=== PATIENT | female | born 1990 | race Two or more races ===

== ENCOUNTER 2018-11-16 17:38 | Emergency (ER) | payer SELFPAY ==
[~2018-11-16] VITALS: Ht 157.5 cm; Wt 54.4 kg
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
[2018-11-16 18:00] VITALS: BP 110/74
--- NOTE | 2018-11-16 18:01 | NUR ---
ED Nurse Note: SKIN IS INTACT. CONTINENT FOR BOTH BOWEL AND BLADDER
[2018-11-16 18:06] LABS: BASOPHILS % (AUTO) 1.1 % (0.0-2.0); EOSINOPHILS % (AUTO) 0.8 % (0.0-3.0); HEMATOCRIT 35.4 % (37.0-47.0); HEMOGLOBIN 11.5 G/DL (12.0-16.0); LYMPHOCYTES % (AUTO) 40.5 % (20.0-45.0); MEAN CORPUSCULAR VOLUME 89 FL (80-99); MONOCYTES % (AUTO) 8.1 % (1.0-10.0); NEUTROPHILS % (AUTO) 49.4 % (45.0-75.0); PLATELET COUNT 316 K/UL (150-450); RED BLOOD COUNT 3.98 M/UL (4.20-5.40); RED CELL DISTRIBUTION WIDTH 12.2 % (11.6-14.8); WHITE BLOOD COUNT 9.2 K/UL (4.8-10.8)
[2018-11-16 18:19] LABS: ANION GAP 9 mmol/L (5-15); BLOOD UREA NITROGEN 11 mg/dL (7-18); CALCIUM 8.9 MG/DL (8.5-10.1); CARBON DIOXIDE 26 MMOL/L (21-32); CHLORIDE 103 MMOL/L (98-107); CREATININE 0.7 MG/DL (0.55-1.30); POTASSIUM 2.9 MMOL/L (3.5-5.1); SODIUM 138 MMOL/L (136-145)
[2018-11-16 18:31] LABS: ALANINE AMINOTRANSFERASE 51 U/L (12-78); ALBUMIN 3.5 G/DL (3.4-5.0); ALBUMIN/GLOBULIN RATIO 1.2 (1.0-2.7); ALKALINE PHOSPHATASE 68 U/L (46-116); ASPARTATE AMINO TRANSFERASE 26 U/L (15-37); BILIRUBIN,TOTAL 0.3 MG/DL (0.2-1.0)
[2018-11-16 18:39] LABS: APPEARANCE,URINE CLEAR; BILIRUBIN, URINE NEGATIVE (NEGATIVE); COLOR,URINE PALE YELLOW; GLUCOSE, URINE (UA) NEGATIVE (NEGATIVE); KETONES,URINE 1+ (NEGATIVE); LEUKOCYTE ESTERASE ,URINE NEGATIVE (NEGATIVE); NITRITE,URINE NEGATIVE (NEGATIVE); PH,URINE 5 (4.5-8.0); PROTEIN,URINE 1+ (NEGATIVE); UROBILINOGEN,URINE NORMAL MG/DL (0.0-1.0)
--- NOTE | 2018-11-16 19:13 | NUR ---
HAND-OFF: Report given to Kit Christianson RN.
[2018-11-16 21:44] VITALS: BP 123/86
[2018-11-16 23:20] VITALS: BP 106/67
--- NOTE | 2018-11-16 23:20 | NUR ---
ED Nurse Note: Pt is fully alert and oriented; fully ambulatory without difficulty. Pt discharged in stable condition, TAP card and food provided.
--- NOTE | 2018-11-17 13:26 | Cardiology Report ---
APPROVED REPORT EKG Measurement Heart [id number] Sinus tachycardia Cannot rule out Anterior infarct, age undetermined Abnormal ECG
== END 2018-11-16 23:20 | disposition home or self-care (01) ==
LOC: EDBD 17:38 → EMR 17:55
DX: R55 Syncope and collapse (principal); F12.10 Cannabis abuse, uncomplicated
CPT/HCPCS: 36415; 80053; 80307; 81003; 81025; 85025; 93005; 96361; 96374; 99284; G0480; J2405; 80329; J8499

== ENCOUNTER → 2019-08-19 | Emergency (ER) | payer OTHER, SELFPAY ==
[~2019-08-19] VITALS: Ht 160 cm; Wt 61.2 kg
[2019-08-19 21:41] VITALS: BP 136/103
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
--- NOTE | 2019-08-19 22:00 | NUR ---
ED Nurse Note: ERMD at bedside.
[2019-08-19 22:15] VITALS: BP 136/103
--- NOTE | 2019-08-19 22:15 | NUR ---
ED Nurse Note: Pt cleared by ERMD for discharge. DC instructions was given and explained to pt and verbalized understanding of teachings. All medical deviecs such as ID band removed. Pt is AAO x4, ambulatory and left with all personal belongings. Weather appropriate clothing provided. Pt accompanied by [employer] officers.
== END ==
LOC: EDUNIT# 21:34 → EDBD 21:41 → EMR 21:54
DX: T65.891A Toxic effect of other specified substances, accidental (unintentional), initial encounter (principal); L24.5 Irritant contact dermatitis due to other chemical products; S02.5XXA Fracture of tooth (traumatic), initial encounter for closed fracture; Y04.0XXA Assault by unarmed brawl or fight, initial encounter; Y93.9 Activity, unspecified; Y92.9 Unspecified place or not applicable; K08.89 Other specified disorders of teeth and supporting structures
CPT/HCPCS: 99282

== ENCOUNTER 2019-11-29 21:04 | Emergency (ER) | payer SELFPAY ==
[~2019-11-29] VITALS: Ht 162.6 cm; Wt 59.0 kg
[2019-11-29 21:15] VITALS: BP 124/81
--- NOTE | 2019-11-29 21:20 | NUR ---
ED Nurse Note: Patient walked in to ER c/o dizziness when standing as well as R sided weakness/numbness and tingling for several days, denies pain. Patioent HOLDEN x4, VSS at this time, was able to ambulate with steady gait.
--- NOTE | 2019-11-29 21:23 | Emergency Room Report ---
History of Present Illness General Chief Complaint: Dizziness Source: Patient Present Illness HPI This a 29-year-old female with no past medical history. She denies any drug use but had a history of methamphetamine here before. She presents with chief complaint of dizziness. Onset for last couple days. She said when she stands up she felt dizzy she had an episode of vomiting. Also with neck and right- sided pain. She denies any fever chills but denies any nausea vomiting. No focal deficit. Surprise better now. This occurred after smoking marijuana. Denies any other complaint. Made it better. Nothing made it worse. Pain is 7 out of 10. COVID-19 risk:Travel to affect: No Has patient experienced fuentes: No Allergies: Coded Allergies: No Known Allergies (Unverified , 11/16/18) Patient History Past Medical History: see triage record, old chart reviewed Past Surgical History: none Pertinent Family History: none Social History: Reports: drug use Last Menstrual Period: 11/14/19 Now: No Immunizations: other Reviewed Nursing Documentation: PMH: Agreed; PSxH: Agreed Nursing Documentation-PMH Past Medical History: No Stated History Review of Systems Eye: Denies: eye pain, blurred vision ENT: Denies: ear pain, nose congestion, throat swelling Respiratory: Denies: cough, shortness of breath Cardiovascular: Denies: chest pain, palpitations Gastrointestinal: Denies: abdominal pain, diarrhea, nausea, vomiting Musculoskeletal: Denies: back pain, joint pain Skin: Denies: rash Neurological: Denies: headache, numbness Endocrine: Denies: increased thirst, increased urine Hematologic/Lymphatic: Denies: easy bruising All Other Systems: negative except mentioned in HPI Physical Exam Vital Signs Date Time Temp Pulse Resp B/P (MAP) Pulse Ox O2 Delivery O2 Flow Rate FiO2 11/29/19 21:10 97.7 100 18 124/81 (95) 98 Room Air Vitals normal Sp02 EP Interpretation: reviewed, normal General Appearance: well appearing, no apparent distress, alert Head: normocephalic, atraumatic Eyes: bilateral eye PERRL, bilateral eye EOMI ENT: hearing grossly normal, normal pharynx Neck: full range of motion, supple, no meningismus Respiratory: chest non-tender, lungs clear, normal breath sounds Cardiovascular #1: regular rate, rhythm, no murmur Gastrointestinal: normal bowel sounds, non tender, no mass, no organomegaly, no bruit, non-distended Musculoskeletal: back normal, normal range of motion, gait/station normal Psychiatric: other - flat affect Medical Decision Making Diagnostic Impression: Primary Impression: Dizziness of unknown cause ER Course Patient complaint of dizziness and pain patient is walking around without any difficulty. No focal deficit. I see no need for CT scan. This may be secondary to her drug abuse and anxiety. She says she felt better now. Asymptomatic. Will discharge home. Last Vital Signs Date Time Temp Pulse Resp B/P (MAP) Pulse Ox O2 Delivery O2 Flow Rate FiO2 11/29/19 21:10 97.7 100 18 124/81 (95) 98 Room Air Status: unchanged Disposition: HOME, SELF-CARE Condition: Stable Scripts No Active Prescriptions or Reported Meds Patient Instructions: Dizziness Additional Instructions: Follow-up with your doctor in 7 days. Abstain from drugs and alcohol. Return if symptoms worsen. Lars Steen MD Nov 29, 2019 21:23
[2019-11-29 21:32] VITALS: BP 124/81
--- NOTE | 2019-11-29 21:32 | NUR ---
ED Nurse Note: Pt cleared by health care Provider for discharge. DC instructions/prescription was given and explained to pt and verbalized understanding of teachings. All medical deviecs such as ID band removed. Pt is AAO x4, ambulatory and left with all personal belongings.
== END 2019-11-29 21:45 | disposition home or self-care (01) ==
LOC: EMR 21:35
DX: R42 Dizziness and giddiness (principal); M54.2 Cervicalgia; R11.10 Vomiting, unspecified
CPT/HCPCS: 99281